=== PATIENT | female | born 1950 | race Caucasian/White ===

== ENCOUNTER 2016-04-15 15:15 | Inpatient (IN) ==
[2016-04-15] MEDS ORDERED: 0.9 % Sodium Chloride 500 ML IVC ONE (15:43)
[2016-04-15] MEDS ORDERED: *HR* Metoprolol 5 MG/5 ML VIAL IVP STA (15:46)
--- NOTE | 2016-04-15 16:05 | Emergency Department Note ---
Disposition Clinical Impression: Right lower lobe pneumonia Qualifiers: Pneumonia type: due to unspecified organism Qualified Code(s): J18.1 - Lobar pneumonia, unspecified organism Disposition: Admitted As Inpatient Condition: Fair Arrhythmia/Palpitations HPI - General Chief Complaint: ED Arrhythmia/Palpitations Stated Complaint: PCP sent to ED for elevated heart rate. STEPHANE Source: patient Limitations: no limitations Nursing Notes Reviewed: Yes Vital Signs Reviewed: Yes - History of Present Illness HPI Narrative: Patient is a 65-year-old female sent from her primary care provider due to possible pneumonia increased heart rate and pressure. Pt Subjective Complaint: "heart racing" Onset (ago): unknown - Related Data Home Medications Medication Instructions Recorded Confirmed Aspirin [Lo-Dose Aspirin EC] 81 mg PO 12/29/15 Atorvastatin Calcium [Lipitor] 40 mg PO 12/29/15 Esomeprazole Magnesium [Nexium] 40 mg PO 12/29/15 Insulin Glargine,Hum.rec.anlog 100 unit SQ 12/29/15 [Lantus Solostar] Insulin LISPRO [Humalog Kwikpen 100 unit SQ 12/29/15 U-100] Lisinopril [Zestril] 20 mg PO DAILY 12/29/15 12/29/15 Sertraline HCl [Zoloft] 100 mg PO 12/29/15 Previous Rx's Medication Instructions Recorded Meclizine [Antivert] 12.5 mg PO TID PRN #20 tablet 12/29/15 Allergies Allergy/AdvReac Type Severity Reaction Status Date / Time Penicillins Allergy Rash Verified 12/29/15 19:13 All systems ED: reviewed and negative except as stated. Past Medical History - Past Medical History Medical history: Reports: diabetes Psychiatric history: Reports: no psych history - Social History Smoking Status: Never smoker Smokeless Tobacco Status: No Alcohol use: Reports: none Drug use: Reports: none Physical Exam - General Limitations: no limitations General appearance: alert - Head Head exam: atraumatic - Eye Eye exam: Present: normal appearance - ENT ENT exam: normal exam - Neck Neck exam: Present: normal inspection - Chest Chest inspection: Present: normal inspection - Respiratory Respiratory exam: Present: normal lung sounds bilaterally. Absent: respiratory distress, wheezes, accessory muscle use - Cardiovascular Cardiovascular exam: Present: tachycardia - Abdominal Exam Abdominal exam: Present: soft, Non-Tender - Extremities Exam Extremities exam: Present: normal inspection - Expanded Lower Extremity Exam Gait: observed and normal - Back Exam Back exam: Present: normal inspection - Neurological Exam Neurological exam: Present: alert, oriented X3, CN II-XII intact - Psychiatric Psychiatric exam: Present: normal affect, normal mood - Skin Skin exam: Present: warm, dry Course Vital Signs Temperature 99.1 F 04/15/16 15:15 Pulse Rate 150 04/15/16 15:15 Respiratory Rate 20 04/15/16 15:15 Blood Pressure 144/96 04/15/16 15:15 O2 Sat by Pulse Oximetry 93 L 04/15/16 15:15 Temperature 97.6 F 04/15/16 18:50 Pulse Rate 149 04/15/16 18:50 Respiratory Rate 15 04/15/16 18:50 Blood Pressure 101/71 04/15/16 18:50 O2 Sat by Pulse Oximetry 93 L 04/15/16 18:53 Oxygen Delivery Oxygen Delivery Room Air Arrhythmia/Palpitations - MDM Narrative Medical decision making narrative: Differential pneumonia versus SVT versus A. fib with rapid ventricular response - Lab Data Lab results reviewed: Yes I reviewed the patient's lab results. Result diagrams: 04/15/16 16:01 04/15/16 16:01 Lab Results 04/15/16 04/15/16 04/15/16 Range/Units 15:54 15:59 16:01 WBC 8.2 (4.3-11.1) K/mcL RBC 3.94 (3.82-4.97) M/mcL Hgb 10.8 L (11.5-15.4) g/dL Hct 32.4 L (35.3-44.9) % MCV 82.2 L (83.0-100.0) fL MCH 27.4 L (28.0-33.3) pg MCHC 33.3 (31.6-35.5) g/dL RDW 12.7 (11.5-14.5) % Plt Count 307 (140-400) K/mcL MPV 11.3 (9.4-12.4) fL Immature Gran % 4.0 (0-4) % Seg Neutrophils % 75.8 % Lymphocytes % 12.5 % Monocytes % 5.9 % Eosinophils % 1.2 % Basophils % 0.6 % Neutrophils # 6.2 (1.6-8.9) K/mcL Lymphocytes # 1.0 (0.6-4.6) K/mcL Monocytes # 0.5 (0.0-1.3) K/mcL Eosinophils # 0.1 (0.0-0.6) K/mcL Basophils # 0.1 (0.0-0.2) K/mcL PT (9.4-12.1) Seconds INR VBG Lactic Acid 1.3 (0.5-2.2) mmol/L Sodium (136-145) mEq/L Potassium (3.5-4.5) mEq/L Chloride (98-109) mEq/L Carbon Dioxide (19-29) mEq/L BUN (7-20) mg/dL Creatinine (0.57-1.11) mg/dL Est GFR ( Amer) (> 60) Est GFR (Non-Af Amer) (> 60) BUN/Creatinine Ratio (6-26) Glucose (70-99) mg/dL POC Glucose 298 H (58-89) Calculated Osmolality (280-300) Calcium (8.6-10.8) mg/dL Total Bilirubin (0.2-1.2) mg/dL AST (5-34) Units/L ALT (0-55) Units/L Alkaline Phosphatase (38-126) Units/L Troponin I (0-0.03) ng/mL Serum Total Protein (6.0-8.3) g/dL Albumin (3.5-5.0) g/dL Globulin (2.4-3.5) g/dL Albumin/Globulin Ratio (1.1-2.2) TSH (0.350-4.840) mcIU/mL 04/15/16 04/15/16 04/15/16 Range/Units 16:01 16:01 16:01 WBC (4.3-11.1) K/mcL RBC (3.82-4.97) M/mcL Hgb (11.5-15.4) g/dL Hct (35.3-44.9) % MCV (83.0-100.0) fL MCH (28.0-33.3) pg MCHC (31.6-35.5) g/dL RDW (11.5-14.5) % Plt Count (140-400) K/mcL MPV (9.4-12.4) fL Immature Gran % (0-4) % Seg Neutrophils % % Lymphocytes % % Monocytes % % Eosinophils % % Basophils % % Neutrophils # (1.6-8.9) K/mcL Lymphocytes # (0.6-4.6) K/mcL Monocytes # (0.0-1.3) K/mcL Eosinophils # (0.0-0.6) K/mcL Basophils # (0.0-0.2) K/mcL PT 11.9 (9.4-12.1) Seconds INR 1.1 VBG Lactic Acid (0.5-2.2) mmol/L Sodium 137 (136-145) mEq/L Potassium 4.3 (3.5-4.5) mEq/L Chloride 101 (98-109) mEq/L Carbon Dioxide 23 (19-29) mEq/L BUN 22 H (7-20) mg/dL Creatinine 0.82 (0.57-1.11) mg/dL Est GFR ( Amer) > 60 (> 60) Est GFR (Non-Af Amer) > 60 (> 60) BUN/Creatinine Ratio 27 H (6-26) Glucose 313 H (70-99) mg/dL POC Glucose (58-89) Calculated Osmolality 299 (280-300) Calcium 8.7 (8.6-10.8) mg/dL Total Bilirubin 0.4 (0.2-1.2) mg/dL AST 14 (5-34) Units/L ALT 17 (0-55) Units/L Alkaline Phosphatase 170 H (38-126) Units/L Troponin I 0.01 (0-0.03) ng/mL Serum Total Protein 5.9 L (6.0-8.3) g/dL Albumin 2.8 L (3.5-5.0) g/dL Globulin 3.1 (2.4-3.5) g/dL Albumin/Globulin Ratio 0.9 L (1.1-2.2) TSH 2.124 (0.350-4.840) mcIU/mL - Radiology Data Radiology results reviewed: Yes I reviewed the patient's radiology results. ITS Impressions Chest X-Ray 04/15/16 15:32 IMPRESSION: Right lower lung opacity likely reflects pneumonia. D/ / 04/15/2016 16:14:24 Andrew Brown MD / Nirmala Vazquez Interpreting Provider: Andrew Brown MD - EKG Data EKG attestation: Yes I reviewed and interpreted this EKG. EKG shows normal: sinus rhythm Rate: tachycardia Rhythm: NSR Interpretation: no acute changes
[2016-04-15 16:18] LABS: Basophils # 0.1 K/mcL (0.0-0.2); Basophils % 0.6 %; Eosinophils # 0.1 K/mcL (0.0-0.6); Eosinophils % 1.2 %; Hematocrit 32.4 % (35.3-44.9); Hemoglobin 10.8 g/dL (11.5-15.4); Lymphocytes % 12.5 %; Mean Corpuscular HGB Conc 33.3 g/dL (31.6-35.5); Mean Corpuscular Hemoglobin 27.4 pg (28.0-33.3); Mean Corpuscular Volume 82.2 fL (83.0-100.0); Mean Platelet Volume 11.3 fL (9.4-12.4); Monocytes # 0.5 K/mcL (0.0-1.3); Monocytes % 5.9 %; Neutrophils # 6.2 K/mcL (1.6-8.9); Platelet Count 307 K/mcL (140-400); Red Blood Count 3.94 M/mcL (3.82-4.97); Red Cell Distribution Width 12.7 % (11.5-14.5); Segmented Neutrophils % 75.8 %
[2016-04-15] MEDS ORDERED: Ondansetron 4 MG/2 ML VIAL IVP STA (16:22)
[2016-04-15] MEDS ORDERED: Levofloxacin 750 MG/150 ML 750 MG/150 ML BAG IVPB ONE (16:22)
[2016-04-15 16:26] LABS: INR 1.1; Prothrombin Time 11.9 Seconds (9.4-12.1)
[2016-04-15 16:38] LABS: Alanine Aminotransferase 17 Units/L (0-55); Albumin 2.8 g/dL (3.5-5.0); Albumin/Globulin Ratio 0.9 (1.1-2.2); Alkaline Phosphatase 170 Units/L (38-126); Aspartate Amino Transferase 14 Units/L (5-34); BUN/Creatinine Ratio 27 (6-26); Bilirubin,Total 0.4 mg/dL (0.2-1.2); Blood Urea Nitrogen 22 mg/dL (7-20); Calcium 8.7 mg/dL (8.6-10.8); Carbon Dioxide 23 mEq/L (19-29); Chloride 101 mEq/L (98-109); Globulin 3.1 g/dL (2.4-3.5); Glucose 313 mg/dL (70-99); Osmolality,Calculated 299 (280-300); Potassium 4.3 mEq/L (3.5-4.5); Sodium 137 mEq/L (136-145); Total Protein 5.9 g/dL (6.0-8.3); eGFR For African Americans > 60 (> 60); eGFR For Non-African Americans > 60 (> 60)
[2016-04-15 16:57] LABS: Thyroid Stimulating Hormone 2.124 mcIU/mL (0.350-4.840)
[2016-04-15] MEDS ORDERED: Naloxone 0.4 MG/ML INJ IVP PRN (17:55)
[2016-04-15] MEDS ORDERED: 0.9 % Sodium Chloride 1,000 ML IVC SCH (17:55)
--- NOTE | 2016-04-15 20:03 | Internal Med History&Physical ---
Date of Encounter: 04/15/16 Time of Encounter: 19:30 Assessment and Plan (1) Pneumonia Current visit: Yes Status: Acute She has been started on Levaquin IV. I will add lactobacillus. Further workup will be done as needed. Qualifiers: Pneumonia type: due to unspecified organism Laterality: right Lung location: lower lobe of lung Qualified Code(s): J18.1 - Lobar pneumonia, unspecified organism (2) Tachycardia Current visit: Yes Status: Acute Suspect atrial flutter with RVR. We will give Adenocard and Lanoxin. (3) History of kidney cancer Current visit: Yes Status: Acute Abdominal/pelvic CT done December 2015 showed no evident residual or recurrent malignancy. (4) DM type 2 (diabetes mellitus, type 2) Current visit: Yes Status: Chronic We will check hemoglobin A1c in a.m. Will do Accu-Cheks with SSI. 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 Internal Medicine - H&P: HPI Chief complaint: Dyspnea Admitted From: Home Plans for Post Hospital Care: Home History of present illness: Ms. Mathew is a 65 year old female who was sent to emergency room from her primary care provider's office after she was evaluated at an acute visit for dyspnea. She reports the dyspnea has been present for 3-4 weeks but increasing over the past few days. She had a minimally productive cough. She was evaluated in emergency room and found to have tachycardia with rate 150/m. There was right lower lobe pneumonia present on chest x-ray. [facility]. She states she has no significant pain at present time. Her respiratory history is significant for having smoked from age [age] up to 7 packs per day. She states she had PFTs in the remote past. She has a diagnosis of asthma. She has been diagnosed with LAMIN but states she could not tolerate CPAP mask. Her cardiovascular history is significant for hypertension. She claims she had a heart cath done in [facility] April 2012 which showed a 40% stenosis in one artery. She does not know which artery was involved. She gets dyspneic on exertion. She denies DVT pulmonary emboli CHF or [place]. She is very sedentary at home. She has noticed increased edema in the past few weeks slightly more in the left than the right leg. Past Med Surg Social Fam HX - Past Medical History Medical history: diabetes Psychiatric history: no psych history - Social History Smoking Status: Never smoker Smokeless Tobacco Status: No Alcohol use: none Drug use: none - Family History Mother Adopted: No Family Member Ethnicity: Non- Living Status: Age at : 55 Hx Family Cardiac Disorders: No Hx Family Respiratory Disorders: Yes (emphysema) Hx Family Cancer: No Hx Family GI Disorders: No Hx Family Genitourinary Disorders: No Hx Family Endocrine Disorder: No Hx Family Musculoskeletal Disorders: No Hx Family Neuromuscular Disorders: No Hx Family Neurologic Disorders: Yes (depression) Hx Family HEENT Disorders: No Hx Family Autoimmune Disorders: No Hx Family Reproductive Disorders: No Hx Family Psychosocial Disorders: No Hx Family Medical Disorders: No Internal Medicine - H&P: Meds Aspirin [Lo-Dose Aspirin EC] 81 mg PO 12/29/15 [History] Atorvastatin Calcium [Lipitor] 40 mg PO 12/29/15 [History] Esomeprazole Magnesium [Nexium] 40 mg PO 12/29/15 [History] Insulin Glargine,Hum.rec.anlog [Lantus Solostar] 100 unit SQ 12/29/15 [History] Insulin LISPRO [Humalog Kwikpen U-100] 100 unit SQ 12/29/15 [History] Lisinopril [Zestril] 20 mg PO DAILY 12/29/15 [History] Meclizine [Antivert] 12.5 mg PO TID PRN #20 tablet 12/29/15 [Rx] Sertraline HCl [Zoloft] 100 mg PO 12/29/15 [History] Allergies Penicillins Allergy (Verified 12/29/15 19:13) Rash All Systems PM: A 10-system review of systems was performed and is negative for pertinent findings except as documented above in the HPI. Review of systems: Gen.: Her weight is increased from 226 pounds at the October 2013 [facility] hospitalization to 298 pounds at present, unintentionally Cardiovascular: As per history of present illness Respiratory: As per history of present illness GI: She has had cholecystectomy. She has GERD but denies disorders of her liver or exocrine pancreas : She has had a hysterectomy. She had right labial infection October 2013 requiring transfer to [facility]. She had partial left nephrectomy in 2014 for malignancy. She did not have postoperative chemotherapy or XRT. She believe she is cancer free. She has not had follow-up with oncologist since 6 months postoperatively. She did have an abdominal/pelvic CT scan done December 2015. 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 Endocrine: She was diagnosed with DM 2 approximately 2000. She has hyperlipidemia. She was told at one time she had hypothyroidism but another physician later told her she did not have this and she does not take medication for it Hematology/oncology: No history of blood disorders. She had anemia documented on the emergency room lab work. She had kidney cancer as per above but denies other internal malignancies. Psychiatric: She has depression but denies anxiety or other mental health issues Musk skeletal: She has chronic low back pain and had bilateral total knee replacements in the past. She has had hammertoe surgery and trigger finger surgery. - Constitutional Vitals: Temp Pulse Resp BP Pulse Ox 97.6 F 149 15 101/71 93 L 04/15/16 18:50 04/15/16 18:50 04/15/16 18:50 04/15/16 18:50 04/15/16 18:53 Exam: Gen.: She is a well-developed morbidly obese female who appears in no acute distress at present time. HEENT: Head is atraumatic and normocephalic. Eyes: EOMI. There is no scleral icterus. Mouth: Mucosa is moist. Neck: Supple and nontender. There is no thyromegaly or adenopathy noted. Heart: Tachycardic at a rate approximately 150/m. No murmurs or gallops are heard. Lungs: No wheezes or crackles are heard. Abdomen: She has a large abdomen. It is nontender to palpation. Extremities: She has trace edema of the left leg and no edema of the right leg. Dorsalis pedis and posttibial pulses are trace palpable bilaterally. Neurologic: Mental status: She is talkative and a good historian. Cranial nerves: Smile is symmetric. Forehead wrinkles bilaterally. Tongue protrudes midline. EOMI. Motor: There is no pronator drift. Cerebellar: Finger to nose intact bilaterally. Skin: Warm and dry Internal Med - H&P Results - Labs CBC & Chem 7: 04/15/16 16:01 04/15/16 16:01
[2016-04-15] MEDS ORDERED: *HR* Digoxin 0.5 MG/2 ML AMPUL IVP ONE (20:14)
[2016-04-15] MEDS ORDERED: *HR* Adenosine 6 MG/2 ML VIAL IVP ONE (20:14)
[2016-04-15] MEDS: 0.9 % Sodium Chloride 1,000 ML IVC SCH (20:51)
[2016-04-15] MEDS: Lactobacillus 1 EACH CAP.SPRINK PO SCH (20:51)
[2016-04-15] MEDS ORDERED: Insulin DETEMIR 100 UNIT/ML per UNIT SQ ONE (21:00)
[2016-04-15] MEDS ORDERED: Verapamil 5 MG/2 ML VIAL IVP ONE (21:55)
[2016-04-15] MEDS: Acetaminophen 325 MG TABLET PO PRN (22:44)
[2016-04-16] MEDS: Acetaminophen 325 MG TABLET PO PRN ×2 (05:17→13:40)
[2016-04-16 06:32] LABS: Basophils # 0.1 K/mcL (0.0-0.2); Basophils % 0.8 %; Eosinophils # 0.1 K/mcL (0.0-0.6); Hematocrit 33.3 % (35.3-44.9); Hemoglobin 10.6 g/dL (11.5-15.4); Immature Granulocytes % 4.2 % (0-4); Lymphocytes # 0.9 K/mcL (0.6-4.6); Lymphocytes % 14.8 %; Mean Corpuscular HGB Conc 31.8 g/dL (31.6-35.5); Mean Corpuscular Hemoglobin 27.1 pg (28.0-33.3); Mean Corpuscular Volume 85.2 fL (83.0-100.0); Mean Platelet Volume 10.7 fL (9.4-12.4); Monocytes # 0.5 K/mcL (0.0-1.3); Monocytes % 7.3 %; Neutrophils # 4.4 K/mcL (1.6-8.9); Platelet Count 303 K/mcL (140-400); Red Blood Count 3.91 M/mcL (3.82-4.97); Red Cell Distribution Width 13.1 % (11.5-14.5); Segmented Neutrophils % 70.9 %
[2016-04-16] MEDS: Lactobacillus 1 EACH CAP.SPRINK PO SCH ×2 (08:42→20:11)
[2016-04-16 08:58] LABS: Hemoglobin A1C 13.3 %
[2016-04-16] MEDS ORDERED: Aspirin Enteric Coated 81 MG Tablet PO SCH (09:00)
[2016-04-16] MEDS ORDERED: Lisinopril 20 MG TABLET PO SCH (09:00)
[2016-04-16] MEDS ORDERED: Verapamil 5 MG/2 ML VIAL IVP ONE ×2 (09:03→13:07)
[2016-04-16] MEDS ORDERED: *HR* Digoxin 0.5 MG/2 ML AMPUL IVP ONE (09:03)
[2016-04-16] MEDS ORDERED: *HR* Propranolol 1 MG/ML VIAL IVP ONE (09:06)
--- NOTE | 2016-04-16 09:11 | Internal Med Progress Note ---
Date of Encounter: 04/16/16 Time of Encounter: 08:55 - Assessment and plan (1) Pneumonia Current Visit: Yes Status: Acute Assessment and plan: April 16. Continue Levaquin and lactobacillus Qualifiers: Pneumonia type: due to unspecified organism Laterality: right Lung location: lower lobe of lung Qualified Code(s): J18.1 - Lobar pneumonia, unspecified organism (2) Tachycardia Current Visit: Yes Status: Acute Assessment and plan: April 16. The Adenocard briefly interrupted the rhythm last night reveal underlying atrial flutter with 2:1 conduction. She will be given additional Lanoxin, verapamil, and a dose of Inderal now (3) History of kidney cancer Current Visit: Yes Status: Acute Assessment and plan: April 16. Abdominal/pelvic CT done December 2015 showed no evidence of residual or recurrent malignancy. (4) DM type 2 (diabetes mellitus, type 2) Current Visit: Yes Status: Chronic Assessment and plan: April 16. Hemoglobin A1c is significantly elevated at 13.3%. Will increase Levemir to 75 units daily at bedtime and continue Accu-Cheks with SSI. 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 Anemia testing is pending - Subjective Interval history: April 16. She has no new complaints - Constitutional Vitals: Temp Pulse Resp BP Pulse Ox 97.6 F 130 16 104/70 95 04/16/16 06:59 04/16/16 06:59 04/16/16 06:59 04/16/16 06:59 04/16/16 06:59 Exam: She is sitting on the side of bed resting comfortably. Her heart is tachycardic rate approximately 140/m. Lungs are clear. Extremities show no edema. I reviewed her medications, CT results, and lab work Internal Medicine: Result - Labs CBC & Chem 7: 04/16/16 05:14 04/15/16 16:01 Labs: Short CBC 04/16/16 Range/Units 05:14 WBC 6.1 (4.3-11.1) K/mcL Hgb 10.6 L (11.5-15.4) g/dL Hct 33.3 L (35.3-44.9) % Plt Count 303 (140-400) K/mcL Neutrophils # 4.4 (1.6-8.9) K/mcL - ABG Interpretation ABG results: PT/INR, D-dimer PT 11.9 Seconds (9.4-12.1) 04/15/16 16:01 D-Dimer 415 ng/mLFEU (0-500) 04/15/16 21:05 - Impressions Impressions Chest CT 04/16/16 06:22 IMPRESSION: 1. Right lower lobe airspace opacity most likely representing pneumonia. 2. Minimal bilateral bronchial wall thickening with mild to moderate involvement in the right lower lobe as well as minimal central airway secretions, suggesting bronchitis. 3. Interstitial pulmonary edema and mild cardiomegaly, suggesting congestive heart failure. 4. Trace right pleural effusion could be related to pneumonia or heart failure. 5. Moderate left-sided coronary atherosclerotic calcifications. 6. Increased size of a 2.2 cm x 1.6 cm soft tissue density lesion in the left thoracic inlet adjacent to but not definitely arising from the lower pole of the left thyroid lobe. Considerations include a thyroid nodule, lymphadenopathy, or parathyroid adenoma. 7. New mildly enlarged right lower paratracheal lymph node, most likely reactive. D/ / Duke Heck MD / Duke Heck MD Interpreting Provider: Duke Heck MD Consult Discharge Plan - Plan Referrals: Reanna Verdugo, CAREER BASED INTERVENTION COORDINATOR [Primary Care Provider] - 1 week
[2016-04-16] MEDS: 0.9 % Sodium Chloride 1,000 ML IVC SCH ×2 (09:40→20:00)
[2016-04-16 11:10] LABS: % Iron Saturation 14 % (15-50); Iron 43 mcg/dL (50-170); Transferrin 220 mg/dL (180-382)
[2016-04-16 11:41] LABS: Ferritin 244 ng/ml (5-204)
[2016-04-16 11:47] LABS: Folate 13.7 ng/mL (7.0-31.4)
[2016-04-16] MEDS ORDERED: D5% in Water 1,000 ML IV PRN (13:42)
[2016-04-16] MEDS ORDERED: Dextrose Gel 15 GM PO PRN ×2 (13:42)
[2016-04-16] MEDS ORDERED: *HR* Dextrose 50 % in Water (Syg) 50 ML SYRINGE IVP PRN (13:42)
--- NOTE | 2016-04-16 15:07 | Electrocardiograph Report ---
[address] [address] Test Date: 2016-04-15 Pat Name: Carlee Mathew Department: [id number] Room: [facility] Gender: F Resident Care Manager Rn: : [id number] Requested By: Tino Dwyer Order Number: [id number] Reading MD: Libby Trejo Measurements Intervals [place] Rate: 150 P: -65 [place]: 117 QRS: 11 QRSD: 126 T: -13 QT: 288 QTc: 373 Interpretive Statements ATRIAL FLUTTER WITH 2:1 AV BLOCK MODERATE INTRAVENTRICULAR CONDUCTION DELAY Electronically Signed On 04-16-2016 15:06:02 EST by Libby Trejo
[2016-04-16] MEDS: Verapamil ER (24 HR) 180 MG TABLET.ER PO SCH (15:40)
[2016-04-16] MEDS: Metoprolol XL (24 HR) Succ 25 MG TAB.ER.24H PO SCH (15:40)
[2016-04-16] MEDS: Insulin LISPRO 300 UNITS/3 ML VIAL SQ SCH ×2 (15:51→20:12)
[2016-04-16 17:17] LABS: Bilirubin,Urine Negative (Negative); Blood,Urine Negative (Negative); Clarity,Urine Clear (Clear); Color,Urine Yellow (Yellow); Glucose,Urine (UA) >=1000 mg/dL (Normal); Ketones,Urine Negative (Negative); Leukocyte Esterase,Urine Negative (Negative); Nitrite,Urine Negative (Negative); Protein,Urine 30 mg/dL (Neg-Trace); Urobilinogen,Urine Normal (Normal)
[2016-04-16 18:20] LABS: Bacteria,Urine Few per hpf (None-Few); Squamous Epithelial Cell,Urine Few per lpf (None-Few); WBC,Urine 0-3 per hpf (0-3)
[2016-04-16] MEDS: *HR* Rivaroxaban 10 MG TABLET PO SCH (20:11)
[2016-04-16] MEDS ORDERED: Insulin DETEMIR 100 UNIT/ML X5UNITS SQ SCH (21:00)
[2016-04-16] MEDS: Nystatin Cream 15 GM TUBE TP SCH (22:00)
[2016-04-17] MEDS: Acetaminophen 325 MG TABLET PO PRN ×2 (05:49→10:24)
[2016-04-17] MEDS: 0.9 % Sodium Chloride 1,000 ML IVC SCH (05:50)
[2016-04-17 05:55] LABS: Basophils # 0.1 K/mcL (0.0-0.2); Basophils % 0.8 %; Eosinophils # 0.1 K/mcL (0.0-0.6); Eosinophils % 2.1 %; Hemoglobin 10.5 g/dL (11.5-15.4); Immature Granulocytes % 4.3 % (0-4); Lymphocytes % 14.9 %; Mean Corpuscular HGB Conc 31.8 g/dL (31.6-35.5); Mean Corpuscular Hemoglobin 27.2 pg (28.0-33.3); Mean Corpuscular Volume 85.5 fL (83.0-100.0); Mean Platelet Volume 10.1 fL (9.4-12.4); Monocytes # 0.6 K/mcL (0.0-1.3); Monocytes % 9.2 %; Neutrophils # 4.5 K/mcL (1.6-8.9); Platelet Count 332 K/mcL (140-400); Red Blood Count 3.86 M/mcL (3.82-4.97); Segmented Neutrophils % 68.7 %
[2016-04-17] MEDS: Insulin LISPRO 300 UNITS/3 ML VIAL SQ SCH ×4 (08:01→21:02)
[2016-04-17] MEDS: Lactobacillus 1 EACH CAP.SPRINK PO SCH ×2 (08:06→20:59)
[2016-04-17] MEDS: Metoprolol XL (24 HR) Succ 25 MG TAB.ER.24H PO SCH (08:08)
[2016-04-17] MEDS: Verapamil ER (24 HR) 180 MG TABLET.ER PO SCH (10:24)
[2016-04-17] MEDS: *HR* Digoxin 0.25 MG TABLET PO SCH (11:14)
[2016-04-17] MEDS ORDERED: Ondansetron 4 MG/2 ML VIAL IVP PRN (11:40)
--- NOTE | 2016-04-17 13:53 | Internal Med Progress Note ---
Date of Encounter: 04/17/16 Time of Encounter: 09:05 - Assessment and plan (1) Pneumonia Current Visit: Yes Status: Acute Assessment and plan: April 16. Continue Levaquin and lactobacillus Qualifiers: Pneumonia type: due to unspecified organism Laterality: right Lung location: lower lobe of lung Qualified Code(s): J18.1 - Lobar pneumonia, unspecified organism (2) Tachycardia Current Visit: Yes Status: Acute Assessment and plan: April 16. The Adenocard briefly interrupted the rhythm last night reveal underlying atrial flutter with 2:1 conduction. She will be given additional Lanoxin, verapamil, and a dose of Inderal now April 17. She is now in atrial fib/flutter with controlled ventricular rate of 90-110. She has also been started on Xarelto for CVA prophylaxis. An echocardiogram has been ordered. (3) History of kidney cancer Current Visit: Yes Status: Acute Assessment and plan: April 16. Abdominal/pelvic CT done December 2015 showed no evidence of residual or recurrent malignancy. (4) DM type 2 (diabetes mellitus, type 2) Current Visit: Yes Status: Chronic Assessment and plan: April 16. Hemoglobin A1c is significantly elevated at 13.3%. Will increase Levemir to 75 units daily at bedtime and continue Accu-Cheks with SSI. April 17. Continue Levemir and Accu-Cheks with SSI. Qualifiers: Diabetes mellitus complication status: with neurologic complications Diabetes mellitus complication detail: with polyneuropathy Diabetes mellitus watermaster insulin use: with watermaster use Qualified Code(s): E11.42 - Type 2 diabetes mellitus with diabetic polyneuropathy; Z79.4 - jail (current) use of insulin (5) Microcytic anemia Current Visit: Yes Status: Acute Assessment and plan: April 16. Anemia testing is pending April 17. Anemia testing showed iron 43, transferrin saturation 14%, ferritin 244, B12 680, and folate 13.7. We will order ferrous sulfate and vitamin C. - Subjective Interval history: April 16. She has no new complaints April 17. She has no complaints except a headache - Constitutional Vitals: Temp Pulse Resp BP Pulse Ox 98.2 F 105 16 131/50 94 L 04/17/16 06:36 04/17/16 06:36 04/17/16 06:36 04/17/16 06:36 04/17/16 06:36 Exam: She is lying in bed appears to be resting comfortably. Her affect is bright and cheerful. I reviewed her medications, vitals, and lab results. Internal Medicine: Result - Labs CBC & Chem 7: 04/17/16 05:25 04/15/16 16:01 Labs: Short CBC 04/17/16 Range/Units 05:25 WBC 6.5 (4.3-11.1) K/mcL Hgb 10.5 L (11.5-15.4) g/dL Hct 33.0 L (35.3-44.9) % Plt Count 332 (140-400) K/mcL Neutrophils # 4.5 (1.6-8.9) K/mcL Urine 04/16/16 Range/Units 16:40 Urine Color Yellow (Yellow) Urine Clarity Clear (Clear) Urine pH 5.0 (5.0-8.0) pH Units Ur Specific [place] 1.020 (1.010-1.025) Urine Protein 30 H (Neg-Trace) mg/dL Urine Glucose (UA) >=1000 H (Normal) mg/dL - ABG Interpretation ABG results: PT/INR, D-dimer PT 11.9 Seconds (9.4-12.1) 04/15/16 16:01 D-Dimer 415 ng/mLFEU (0-500) 04/15/16 21:05 Consult Discharge Plan - Plan Referrals: Reanna Verdugo, CLOCK MECHANIC [Primary Care Provider] - 1 week
[2016-04-17] MEDS: Nystatin Cream 15 GM TUBE TP SCH ×3 (15:36→23:48)
[2016-04-17] MEDS ORDERED: Albuterol 2.5 MG/3 ML NEBULIZER IH PRN (16:16)
[2016-04-17] MEDS: *HR* Rivaroxaban 10 MG TABLET PO SCH (17:15)
[2016-04-17] MEDS: *HR* HYDROcodone/Acet 5/325 mg TABLET PO PRN (20:56)
[2016-04-17] MEDS ORDERED: Insulin DETEMIR 100 UNIT/ML X5UNITS SQ SCH (21:00)
[2016-04-18] MEDS: *HR* HYDROcodone/Acet 5/325 mg TABLET PO PRN (04:23)
[2016-04-18] MEDS: Ascorbic Acid 500 MG TABLET PO SCH ×2 (06:15→09:12)
[2016-04-18] MEDS: Metoprolol XL (24 HR) Succ 25 MG TAB.ER.24H PO SCH (07:43)
[2016-04-18] MEDS: Lactobacillus 1 EACH CAP.SPRINK PO SCH (07:44)
[2016-04-18] MEDS: Verapamil ER (24 HR) 180 MG TABLET.ER PO SCH (07:44)
[2016-04-18] MEDS: *HR* Digoxin 0.25 MG TABLET PO SCH (07:44)
[2016-04-18] MEDS: Insulin LISPRO 300 UNITS/3 ML VIAL SQ SCH (07:47)
[2016-04-18] MEDS: Acetaminophen 325 MG TABLET PO PRN (09:06)
[2016-04-18] MEDS: Nystatin Cream 15 GM TUBE TP SCH (09:12)
--- NOTE | 2016-04-18 09:43 | Discharge Summary ---
Date of Encounter: 04/18/16 Time of Encounter: 09:30 - Discharge Diagnosis (1) Pneumonia Priority: Primary Status: Acute Qualifiers: Pneumonia type: due to unspecified organism Laterality: right Lung location: lower lobe of lung Qualified Code(s): J18.1 - Lobar pneumonia, unspecified organism (2) Atrial fibrillation Priority: Secondary Status: Acute Qualifiers: Atrial fibrillation type: unspecified Qualified Code(s): I48.91 - Unspecified atrial fibrillation (3) History of kidney cancer Priority: Secondary Status: Acute (4) DM type 2 (diabetes mellitus, type 2) Priority: Secondary Status: Chronic Qualifiers: Diabetes mellitus complication status: with neurologic complications Diabetes mellitus complication detail: with polyneuropathy Diabetes mellitus chcf insulin use: with chcf use Qualified Code(s): E11.42 - Type 2 diabetes mellitus with diabetic polyneuropathy; 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 (5) Microcytic anemia Priority: Secondary Status: Acute - Discharge Medications Prescriptions: Ascorbic Acid [Vitamin C] 500 mg PO DAILY #30 tablet Digoxin [Lanoxin] 0.25 mg PO DAILY #30 tablet Ferrous Sulfate 325 mg PO DAILY #30 tablet Levofloxacin [Levaquin] 500 mg PO DAILY #3 tablet Metoprolol XL (24 HR) Succ [Toprol Xl] 25 mg PO DAILY #30 tab.er.24h Rivaroxaban [Xarelto] 20 mg PO 1700 #30 tablet Verapamil ER (24 HR) [Calan SR] 180 mg PO DAILY #30 tablet.er Home Medications: Atorvastatin Calcium [Lipitor] 40 mg PO 12/29/15 [History] Esomeprazole Magnesium [Nexium] 40 mg PO 12/29/15 [History] Insulin Glargine,Hum.rec.anlog [Lantus Solostar] 100 unit SQ 12/29/15 [History] Insulin LISPRO [Humalog Kwikpen U-100] 100 unit SQ 12/29/15 [History] Meclizine [Antivert] 12.5 mg PO TID PRN #20 tablet 12/29/15 [Rx] Sertraline HCl [Zoloft] 100 mg PO 12/29/15 [History] Ascorbic Acid [Vitamin C] 500 mg PO DAILY #30 tablet 04/18/16 [Rx] Digoxin [Lanoxin] 0.25 mg PO DAILY #30 tablet 04/18/16 [Rx] Ferrous Sulfate 325 mg PO DAILY #30 tablet 04/18/16 [Rx] Levofloxacin [Levaquin] 500 mg PO DAILY #3 tablet 04/18/16 [Rx] Lisinopril [Zestril] 10 mg PO DAILY #0 04/18/16 [Rx] Metoprolol XL (24 HR) Succ [Toprol Xl] 25 mg PO DAILY #30 tab.er.24h 04/18/16 [ Rx] Rivaroxaban [Xarelto] 20 mg PO 1700 #30 tablet 04/18/16 [Rx] Verapamil ER (24 HR) [Calan SR] 180 mg PO DAILY #30 tablet.er 04/18/16 [Rx] Allergies/Adverse Reactions: Allergies Penicillins Allergy (Verified 12/29/15 19:13) Rash Date of admission: 04/17/16 13:56 Primary care physician: Reanna Verdugo CNP - Patient Status Disposition: Home, Self-Care Condition: Fair Overall status at discharge: patient is progressing back to baseline - Discharge Instructions Follow Up With: Reanna Verdugo CNP [Primary Care Provider] - 1 week - Diet and Activity Activity: resume usual activities as tolerated Diet: diabetic diet Hospital course: Ms. Mathew is a 65 year old female who was sent to emergency room from her primary care provider's office after she was evaluated at an acute visit for dyspnea. She reports the dyspnea has been present for 3-4 weeks but increasing over the past few days. She had a minimally productive cough. She was evaluated in emergency room and found to have tachycardia with rate 150/m. There was right lower lobe pneumonia present on chest x-ray. She was admitted to [facility] floor for ongoing care needs. Initial orders were written by the emergency room physician. I saw her on April 15 and performed history and physical. She was started on IV Levaquin. I added lactobacillus. She had good clinical response with the WBC remaining normal and resolution of the left shift. She remained afebrile during her hospital stay. She will continue with Levaquin for 3 additional days after discharge. Her tachycardia persisted from the emergency room until arrival on [facility] at a rate approximately 150/m. I gave her Adenocard which revealed she was in atrial flutter with 2:1 conduction. She was started on Lanoxin and given beta vincent and verapamil. Her rate slowed to approximately 100/m. She altered between atrial flutter and atrial fibrillation. An echocardiogram was ordered but could not be performed during time of hospitalization. This will be performed as an outpatient. She will remain on verapamil, Toprol-XL, and Lanoxin at discharge for rate control. She was also started on Xarelto for CVA prophylaxis. Anemia testing showed iron 43, transferrin saturation 14%, ferritin 244, B12 680 , and folate 13.7. She was started on ferrous sulfate with vitamin C and this will be continued at discharge. On April 18 she was stable for discharge home. She will follow Reanna Verdugo CNP within 1 week. She need to be on anticoagulation for approximately 3 weeks before attempting cardioversion. I will let Reanna Verdugo CNP order follow-up to a gravure press set up operator as needed. Room air oximetry will be checked on a 6 minute walk prior to discharge. - Time Spent with Patient Total time spent providing and/or coordinating discharge services: - Constitutional Vitals: Temp Pulse Resp BP Pulse Ox 98.6 F 95 16 145/78 94 L 04/18/16 07:22 04/18/16 07:22 04/18/16 07:22 04/18/16 07:22 04/18/16 09:36
[2016-04-18 11:24] VITALS: BP 136/84
== END 2016-04-18 12:15 | disposition home or self-care (01) | DRG 194 ==
LOC: INPPIK 15:15 → EMEROOPIK 15:15 → INPPIK 18:35
PROVIDERS: ADMIT Internal Medicine; ATTEND Internal Medicine